=== PATIENT | female | born 1950 | race Caucasian/White ===

== ENCOUNTER 2018-09-18 06:39 | Day surgery (SDC) | payer MEDICARE, OTHER ==
[2018-09-18] MEDS ORDERED: LABETALOL HCL 5MG/ML, 20ML VIAL IV ONE (06:40)
[2018-09-18] MEDS ORDERED: LIDOCAINE 2% MDV (20MG/ML) 20ML VIAL IV ONE (06:40)
[2018-09-18] MEDS ORDERED: PROPOFOL 10 MG/ML VIAL IV ONE (06:40)
--- NOTE | 2018-09-25 13:16 | Operative Note ---
SURGEON: Logan Jones MD OPERATION: COLONOSCOPY. INDICATIONS: This is a 70-year-old female with history of left lower quadrant pain who presented for colonoscopy. POSTOPERATIVE DIAGNOSES: 1. Poor bowel preparation. 2. An 8 mm ascending colon polyp that was removed by cold snare, partially retrieved. ANESTHESIA: Sedation is per Anesthesia. Pulse oximetry was monitored throughout the procedure to maintain O2 saturation of 90% or greater. Supplemental oxygen was administered via nasal cannula. Cardiac and vital signs were monitored throughout the duration of the procedure, and they were stable. The procedure of colonoscopy and risks and alternatives of the procedure, including the risk of bleeding and perforation, among others, were explained to the patient who voiced understanding and agreed to have the procedure done. Physical examination was performed, and the patient was found stable for sedation. PROCEDURE: The patient was placed in the left lateral position. Sedation was initiated. A digital rectal exam was performed and showed some mild external hemorrhoids with no palpable rectal masses. An Olympus PCF-180AL colonoscope was then inserted into the rectum under direct visualization. It was advanced to the cecum without difficulty. The ileocecal valve and appendiceal orifice were identified and photographed. The colonic mucosa was carefully examined upon introduction of the colonoscope. The bowel preparation was poor in the sigmoid and ascending colon. In the ascending colon there was an 8 mm sessile polyp that was noted and was removed by cold snare. The was questionable. The colonoscope was then withdrawn while carefully examining the colonic mucosal surfaces. No other gross lesions were noted. In the rectum, retroflexion was performed and grade 1 internal hemorrhoids were noted. The colonoscope was then withdrawn and the procedure was terminated. The patient tolerated the procedure well without any immediate complications. The patient remained with stable vital signs and was transferred to the recovery room. RECOMMENDATIONS: The patient is to have a repeat colonoscopy in about a year with 2-day bowel preparation. Thank you for allowing me to participate in the care of your patient. CC: Dr. Annemarie RENTERIA
== END 2018-09-18 10:40 | disposition home or self-care (01) ==
LOC: HOP 06:39
PROVIDERS: ATTEND Internal Medicine Gastroenterology
DX: R10.32 Left lower quadrant pain (principal); D12.2 Benign neoplasm of ascending colon; E11.9 Type 2 diabetes mellitus without complications

== ENCOUNTER 2019-04-26 21:24 | Emergency (ER) | payer MEDICARE, OTHER ==
--- NOTE | 2019-04-26 21:58 | Emergency Department Record ---
History of Present Illness - General Stated Complaint: LEFT LEG SWOLLEN Time Seen by Provider: 04/26/19 21:49 Source: Patient Mode of Arrival: Ambulatory Limitations: No limitations - History of Present Illness Initial Comments: 68 yo female presents to ED for evaluation of left knee pain that occurred 2 hours ago, reports pain improved at this time. Patient reports increased activity ambulating up and down the stairs this evening, denies specific injury or trauma to the knee. Patient reports previous total knee arthroscopy previously, denies redness, swelling, or pain with ROM of the knee on examination. MD Complaint: Knee injury Onset/Timin -: Hour(s) Injury: Knee: Left Type of Injury: Other (? Overuse) Place: Home Severity: Moderate Improves With: Rest Worsens With: Weight bearing - Related Data Previous Rx's Medication Instructions Recorded Ibuprofen 400 mg PO Q8H PRN #15 tablet 04/26/19 Allergies Allergy/AdvReac Type Severity Reaction Status Date / Time No Known Drug Allergies Allergy Verified 09/18/18 12:41 Review of Systems Constitutional: Denies: Chills, Fever, Malaise, Night sweats Eyes: Denies: Eye discharge, Eye pain ENT: Denies: Congestion, Ear pain, Epistaxis Respiratory: Denies: Cough, Dyspnea Cardiovascular: Denies: Chest pain, Dyspnea on exertion Endocrine: Denies: Fatigue, Heat or cold intolerance Gastrointestinal: Denies: Abdominal pain, Nausea, Vomiting Genitourinary: Denies: Incontinence, Retention Musculoskeletal: Reports: Arthralgia. Denies: Back pain, Gout, Joint swelling Skin: Denies: Bruising, Change in color Neurological: Denies: Abnormal gait, Confusion, Headache, Seizure Psychiatric: Denies: Anxiety Hematological/Lymphatic: Denies: Anemia, Blood Clots Past Medical History - SOCIAL HISTORY Smoking Status: Former smoker Alcohol Use Comment: red wine - RESPIRATORY Hx Respiratory Disorders: Yes Hx Sleep Apnea: Yes Hx of CPAP: Yes - CARDIOVASCULAR Hx Cardio Disorders: No - NEURO Hx Neuro Disorders: No - GI Hx GI Disorders: Yes Hx Abdominal Pain: Yes (LLQ) - Hx Genitourinary Disorders: Yes Hx Bladder Problem: Yes - ENDOCRINE Hx Endocrine Disorders: Yes Hx Diabetes: Yes - MUSCULOSKELETAL Hx Musculoskeletal Disorders: Yes Hx Arthritis: Yes (MEME knees, toes) - PSYCH Hx Psych Problems: Yes Hx Anxiety: Yes Hx Depression: Yes - HEMATOLOGY/ONCOLOGY Hx Hematology/Oncology Disorders: No Physical Exam - General General Appearance: Alert, Oriented x3, Cooperative, No acute distress Limitations: No limitations - Head Head exam: Atraumatic, Normocephalic, Normal inspection Head exam detail: negative: Abrasion, Contusion, Johansen's sign, General tenderness, Hematoma, Laceration - Eye Eye exam: Normal appearance. negative: Conjunctival injection, Periorbital swelling, Periorbital tenderness, Scleral icterus - ENT Ear exam: negative: Auricular hematoma, Auricular trauma Nasal Exam: negative: Active bleeding, Discharge, Dried blood, Foreign body Mouth exam: negative: Drooling, Laceration, Muffled voice, Tongue elevation - Neck Neck exam: Normal inspection. negative: Meningismus, Tenderness - Respiratory Respiratory exam: Normal lung sounds bilaterally. negative: Rales, Respiratory distress, Rhonchi, Stridor - Cardiovascular Cardiovascular Exam: Regular rate, Normal rhythm, Normal heart sounds - GI/Abdominal GI/Abdominal exam: Soft. negative: Rebound, Rigid, Tenderness - Rectal Rectal exam: Deferred - exam: Deferred - Extremities Extremities exam: Normal inspection. negative: Pedal edema, Tenderness - Back Back exam: Denies: CVA tenderness (R), CVA tenderness (L) - Neurological Neurological exam: Alert, Normal gait, Oriented X3 - Psychiatric Psychiatric exam: Normal affect, Normal mood - Skin Skin exam: Normal color. negative: Abrasion Type of lesion: negative: abrasion Course - Reevaluation(s) Reevaluation #1: 04/26/19 22:25 Left knee: Post-operative changes Suprapatellar joint effusion Thickening of the patellar tendon Patient was updated on all results Patient denies lower extremity edema, calf pain, or history of DVT. D-Dimer for further evaluation of DVT does not appear indicated given symptoms are localized to the knee alone. Patient is in agreement with the plan of care as discussed, appears stable for discharge at this time with symptomatic treatment for mild knee effusion. Medical Decision Making - Lab Data Result diagrams: 04/26/19 21:49 Disposition Disposition: Discharge Clinical Impression: Knee pain, acute Qualifiers: Laterality: left Qualified Code(s): M25.562 - Pain in left knee Disposition: Home, Self-Care Condition: (2) Stable Instructions: Knee Pain (ED) Additional Instructions: Return to ED if your symptoms worsen or if you have any concerns. Tylenol (limited prescription for Motrin) as needed for pain symptoms. Follow-up with your family doctor in 3-5 days as directed. Prescriptions: Ibuprofen 400 mg PO Q8H PRN #15 tablet PRN Reason: Pain - Mild To Moderate (1-7) Time of Disposition: 22:31 Quality - Quality Measures Quality Measures: N/A - Blood Pressure Screening Does Patient Have Any of the Following: No Blood Pressure Classification: Pre-Hypertensive BP Reading Systolic Measurement: 140 Diastolic Measurement: 85 Screening for High Blood Pressure: < Pre-Hypertensive BP, F/U Documented > [ [id number]] Pre-Hypertensive Follow-up Interventions: Referral to alternative/primary care provider.
--- NOTE | 2019-04-26 22:27 | RADIOLOGY REPORT ---
EXAMINATION: Left Knee Complete, Four or More Views EXAM DATE: 04/26/2019 10:22 PM TECHNIQUE: Frontal, lateral, oblique and sunrise view INDICATION: Pain, resolving COMPARISON: None ENCOUNTER: Initial FINDINGS: Trace suprapatellar joint effusion. There is thickening of the patellar tendon. Left knee prosthesis, hardware components are well seated. No acute fracture or malalignment. Dictated by: Mariya Santa MD on 04/26/2019 10:23 PM. .
== END 2019-04-26 22:51 | disposition home or self-care (01) ==
LOC: ER 21:24
DX: M25.562 Pain in left knee (principal); E11.9 Type 2 diabetes mellitus without complications; Z87.891 Personal history of nicotine dependence; Z96.652 Presence of left artificial knee joint
CPT/HCPCS: 99284